=== PATIENT | female | born 1980 | race Caucasian/White ===

== ENCOUNTER 2016-10-29 10:22 | Emergency (ER) | payer OTHER ==
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
[2016-10-29 11:59] VITALS: BP 106/76
== END 2016-10-29 12:00 | disposition home or self-care (01) ==
LOC: ER 10:22
DX: S09.22XA Traumatic rupture of left ear drum, initial encounter (principal); Y04.2XXA Assault by strike against or bumped into by another person, initial encounter; Y92.199 Unspecified place in other specified residential institution as the place of occurrence of the external cause; Y99.0 Civilian activity done for income or pay; Z88.5 Allergy status to narcotic agent; Z88.8 Allergy status to other drugs, medicaments and biological substances; Z91.048 Other nonmedicinal substance allergy status
CPT/HCPCS: 99283

== ENCOUNTER → 2018-01-28 | Day surgery (SDC) | payer OTHER ==
[~2018-01-28] MED LIST: LIDOCAINE 1% INJ-PF (10 MG/ML) 30 ML SDV ONE
--- NOTE | 2018-01-28 11:38 | RADIOLOGY REPORT (SQ) ---
EXAM DESCRIPTION: U/S BIOPSY THYROID COMPLETED DATE/TIME: 01/28/2018 10:52 am REASON FOR STUDY: THYROID NODULE COMPARISON: Outside thyroid ultrasound 01/07/2018 TECHNIQUE: The procedure was discussed with the patient and written informed consent obtained. A ti meout was performed to confirm the procedure and patient's identity. The skin of the neck was preppe d and draped in sterile fashion and 0.5 mL of 1% lidocaine administered for local anesthesia. Under sonographic guidance, fine needle aspiration biopsy was per formed of the mass in the right lower lobe of the thyroid. Three separate aspirations were performed. Specimens were deemed adequate by [place] from cytology. Hemostasis was obtained with direct manual compression. There were no immediate complications. LIMITATIONS: None. FINDINGS: PATHOLOGY: Pending. IMPRESSION: ULTRASOUND-GUIDED BIOPSY PERFORMED OF A MASS IN THE RIGHT LOBE OF THE THYROID. PATHOLOG Y PENDING AT THE TIME OF DICTATION. COMMENT: Patient medication list reviewed: Yes- Quality ID# [id number]:Eligible professional attests to doc umenting in the medical record they obtained, updated, or reviewed the patient's current medications. TECHNICAL DOCUMENTATION: JOB ID: [id number] [employer]- All Rights Reserved Reading location - IP/workstation name: [facility]
== END ==
LOC: RAD 09:14
PROVIDERS: ATTEND Family Medicine
DX: E04.1 Nontoxic single thyroid nodule (principal)
CPT/HCPCS: 88173 ×2; 60100; J3490